=== PATIENT | female | born 1985 ===

== ENCOUNTER 2019-05-07 06:39 | Day surgery (SDC) | payer OTHER | END 2019-05-07 16:55 | disposition home or self-care (01) | LOC: CIR.AMB 06:39 | DX: N87.0 Mild cervical dysplasia (principal) ==

== ENCOUNTER 2019-05-19 15:30 | Emergency (ER) | payer OTHER ==
[~2019-05-19] VITALS: Ht 167.6 cm; Wt 61.2 kg
== END 2019-05-19 18:17 | disposition home or self-care (01) ==
LOC: ER 15:30
DX: N93.8 Other specified abnormal uterine and vaginal bleeding (principal)